=== PATIENT | female | born 1980 | race African-American/Black ===

== ENCOUNTER 2017-08-07 13:31 | Emergency (ER) | payer OTHER ==
--- NOTE | 2017-08-07 16:42 | PD ---
HPI Chief Complaint abdominal pain Date Seen: Aug 07, 2017 Time Seen: 16:00 Travel History International Travel<30 Days: No Contact w/Intl Traveler<30Days: No Known Affected Area: No History of Present Illness HPI Ms. Walker is a 37-year-old at 30/5 weeks gestation presented to the ED for lower abdominal pain. She states that this started in June when she was bit by a police canine at her stepfather's house. She states that since then she is felt the baby move a lot more along with this new lower abdominal pain. She states that it doesn't radiate. She doesn't take any pain medications for it. No leakage of fluids, no vaginal bleeding, no dysuria, no contractions. She also states that since her stepfather's last week she's been depressed and snorted a dime bag of cocaine last night. Weeks Gestation: 30 Para: 9 : 10 History Past Medical History Medical History: Denies Significant Hx Obstetric History Obstetric History LMP January 2017 NIRMAL October 11, 2017 Past Surgical History Narrative Surgical C/S Family History Narrative Family History Both parents are . Mother from cancer and had liver cirrhosis Social History Narrative Social History Currently homeless, but living in stepfather's home Drinks alcohol, but would not give further information Smokes cigarettes, states that it's a lot Snorts cocaine, states that last night was first time that she is ever done it during this Alcohol Use: Yes Tobacco Use: Yes Substance Abuse: Yes Allergies-Medications (Allergen,Severity, Reaction): Coded Allergies: No Known Allergies (Unverified , 11/11/15) Narrative Medication vitamins Review of Systems General / Constitutional: No: Fever, Chills HENT: No: Headaches Respiratory: No: Cough, Short of Breath Gastrointestinal: Abdominal Pain, No: Nausea, Vomiting Genitourinary: No: Dysuria Skin: No Rash Neurologic: No: Dizziness Physical Exam Narrative GENERAL: Well-nourished, well-developed patient laying in bed, in no acute distress. Tearful at times during interview. SKIN: Warm and dry. HEAD: Normocephalic and atraumatic. EYES: No scleral icterus. No injection or drainage. ENT: No nasal drainage noted. Mucous membranes pink. Airway patent. NECK: Supple, trachea midline. No JVD. CARDIOVASCULAR: Regular rate and rhythm without murmurs, gallops, or rubs. RESPIRATORY: Breath sounds equal bilaterally. No accessory muscle use. BREASTS: Bilateral exam showed no masses , no retractions, no nipple discharge. ABDOMEN/GI: Abdomen soft, non-tender, bowel sounds present, no rebound, no guarding Gravid to 30 weeks size GENITOURINARY: External Genitalia: intact and normal in appearance Cervix: no masses Dilatation: 1 Effacement: thick Station: -3 Presentation: unknown Membranes: intact Uterine Contractions: occasionally FHT's: Category: 1 Baseline: 140s Reactive: yes Variability: moderate Decels: none EXTREMITIES: No cyanosis or edema. BACK: Nontender without obvious deformity. No CVA tenderness. NEUROLOGICAL: Awake and alert. Motor and sensory grossly within normal limits. Five out of 5 muscle strength in all muscle groups. Normal speech. Data Data Vital Signs Reviewed: Yes Orders Orders Vital Signs (Adult) .ON ADMISSION (08/07/17 16:26) ^ Labor Status (08/07/17 16:26) Urinalysis - C+S If Indicated (08/07/17 16:26) ^ Non Stress Test (08/07/17 16:26) Ob/Psych Drug Screen, Urine (08/07/17 16:26) Drug Screen, Random Urine (08/07/17 16:26) Labs Laboratory Tests Test 08/07/17 16:00 MDM Plan Patient with lower abdominal pain of about 2 months duration. Description of pain is most likely related to round ligament pain. * Minimal cervical change on exam, advised pt about signs of labor * UA was negative, UDS positive for cocaine, expanded OB/psych toxicology is pending * Advised patient about cause of round ligament pain, normal pain in * Encouraged her to discontinue cocaine, alcohol, and cigarette use Diagnosis Diagnosis: Primary Impression: Round ligament pain Disposition: DISCHARGE HOME Condition: Stable Beena Mcbride MD R1 Aug 07, 2017 16:42
[2017-08-07 16:43] LABS: BILIRUBIN, URINE NEG (NEG); BLOOD, URINE NEG (NEG); GLUCOSE,URINE NEG (NEG); KETONE, URINE NEG (NEG); MUCUS URINE FEW /lpf (OCC); NITRITE,URINE NEG (NEG); PH, URINE 6.5 (5.0-8.5); SQUAMOUS EPITHELIAL CELL URINE 3 /hpf (0-5); URINE COLOR YELLOW (YELLW/STRAW); URINE LEUKOCYTE ESTERASE SMALL (NEG)
== END 2017-08-07 16:53 | disposition home or self-care (01) ==
LOC: HOBED 13:31
DX: O26.893 Other specified pregnancy related conditions, third trimester (principal); R10.2 Pelvic and perineal pain; O99.333 Smoking (tobacco) complicating pregnancy, third trimester; F17.210 Nicotine dependence, cigarettes, uncomplicated; O09.523 Supervision of elderly multigravida, third trimester; O99.323 Drug use complicating pregnancy, third trimester; F14.90 Cocaine use, unspecified, uncomplicated; Z3A.30 30 weeks gestation of pregnancy
CPT/HCPCS: 80307; 81001; 99284; G0481